=== PATIENT | female | born 1985 | race Caucasian/White ===

== ENCOUNTER → 2016-09-12 | Outpatient (CLI) | payer BC ==
[~2016-09-12] MED LIST: DOXY25TA7; PRENTAB26 PO; PYRI1TAB30
[2016-09-12 13:55] LABS: URINE APPEARANCE CLOUDY (CLEAR); URINE BILIRUBIN NEG (NEG); URINE COLOR DK YELLOW; URINE EPITHELIAL CELL AUTO >30 /lpf (0-5); URINE NITRITE NEG (NEG); URINE PH 7.5 (4.5-7.5); URINE SPECIFIC GRAVITY 1.026 (1.000-1.030); UROBILINOGEN NEG (NEG)
[2016-09-12 14:08] LABS: MANUAL MICROSCOPIC REQUIRED? NO; REVIEW REQ? NO; SULFASALICYLIC ACID NEG (NEG)
== END | disposition home or self-care (01) ==
LOC: C.LABSPEC 13:28
PROVIDERS: ATTEND Obstetrics & Gynecology
DX: Z34.00 Encounter for supervision of normal first pregnancy, unspecified trimester (principal)

== ENCOUNTER → 2016-09-14 | Outpatient (CLI) | payer BC ==
[2016-09-14 12:26] LABS: BASO % 0.3 %; BASO ABS # 0.02 K/uL (0-0.2); COMPLETE YES; EOS % 0.6 %; HEMATOCRIT 40.3 % (37-47); IG% 0.1 %; LYMPH % 19.2 %; LYMPH ABS # 1.37 K/uL (1.2-3.4); MEAN CELL VOLUME 84.8 fL (80-100); MEAN CORPUSCULAR HEMOGLOBIN 29.5 pg (25-34); MEAN CORPUSCULAR HGB CONC 34.7 g/dl (32-36); MEAN PLATELET VOLUME 10.7 fL (7.4-10.4); MONO % 5.6 %; NEUT % 74.2 %; PLATELET COUNT 220 K/uL (130-400); RED BLOOD COUNT 4.75 M/uL (4.2-5.4); WHITE BLOOD COUNT 7.15 K/uL (4.8-10.8)
[2016-09-17 03:06] LABS: CHLAMYDIA TRACH RNA*** NOT DETECTED (NOT DETECTED); GC (NEIS GONORRHOEAE)RNA** NOT DETECTED (NOT DETECTED)
== END | disposition home or self-care (01) ==
LOC: C.LAB1850 10:28
PROVIDERS: ATTEND Obstetrics & Gynecology
DX: Z34.00 Encounter for supervision of normal first pregnancy, unspecified trimester (principal)

== ENCOUNTER → 2016-10-12 | Outpatient (CLI) | payer BC ==
[2016-10-12 14:01] LABS: GTGD 50 Grams
== END | disposition home or self-care (01) ==
LOC: C.LAB1850 10:47
PROVIDERS: ATTEND Obstetrics & Gynecology
DX: Z34.01 Encounter for supervision of normal first pregnancy, first trimester (principal)

== ENCOUNTER → 2017-01-05 | Outpatient (CLI) | payer BC ==
[2017-01-05 10:44] LABS: HEMATOCRIT 40.1 % (37-47)
[2017-01-05 11:33] LABS: GTGD 50 Grams
[2017-01-05 12:04] LABS: URINE APPEARANCE CLEAR (CLEAR); URINE BILIRUBIN NEG (NEG); URINE COLOR YELLOW; URINE EPITHELIAL CELL AUTO >30 /lpf (0-5); URINE NITRITE NEG (NEG); URINE PH 8.5 (4.5-7.5); UROBILINOGEN NEG (NEG)
[2017-01-05 12:08] LABS: MANUAL MICROSCOPIC REQUIRED? NO; REVIEW REQ? NO
== END | disposition home or self-care (01) ==
LOC: C.LAB1850 09:41
PROVIDERS: ATTEND Obstetrics & Gynecology
DX: Z34.02 Encounter for supervision of normal first pregnancy, second trimester (principal)

== ENCOUNTER → 2017-03-10 | Outpatient (CLI) | payer BC | END | disposition home or self-care (01) | LOC: C.LABSPEC 17:24 | PROVIDERS: ATTEND Obstetrics & Gynecology | DX: Z34.03 Encounter for supervision of normal first pregnancy, third trimester (principal); Z3A.00 Weeks of gestation of pregnancy not specified ==

== ENCOUNTER 2017-03-14 03:12 | Inpatient (IN) | payer BC ==
[~2017-03-14] VITALS: Ht 165.1 cm; Wt 101.6 kg
[2017-03-14] MEDS ORDERED: LACTATED RINGER'S 1000ML 1,000 ML IV PRN (03:49)
[2017-03-14 03:54] VITALS: Ht 165.1 cm; Wt 101.6 kg
[2017-03-14 04:07] LABS: HEMATOCRIT 40.4 % (37-47); MEAN CELL VOLUME 86.5 fL (80-100); MEAN CORPUSCULAR HEMOGLOBIN 29.1 pg (25-34); MEAN CORPUSCULAR HGB CONC 33.7 g/dl (32-36); MEAN PLATELET VOLUME 10.8 fL (7.4-10.4); PLATELET COUNT 187 K/uL (130-400); RED BLOOD COUNT 4.67 M/uL (4.2-5.4); WHITE BLOOD COUNT 8.97 K/uL (4.8-10.8)
[2017-03-14] MEDS ORDERED: DOXY25TA7 (07:04)
[2017-03-14] MEDS ORDERED: PRENTAB26 PO (07:04)
[2017-03-14] MEDS ORDERED: PYRI1TAB30 (07:04)
[2017-03-14] MEDS ORDERED: CALCIUM CARBONATE 500 MG CHEWABLE PO PRN (07:15)
[2017-03-14] MEDS: LACTATED RINGER'S 1000ML 1,000 ML IV SCH ×2 (07:28→08:31)
[2017-03-14] MEDS ORDERED: FENTANYL CITRATE INJ 50 MCG/1 ML 2 ML VIAL ONE (08:01)
[2017-03-14] MEDS ORDERED: FENTANYL 2MCG/ML ROPIV 1.25MG/ML 100ML BAG EPI ONE (08:01)
[2017-03-14] MEDS ORDERED: EpHEDrine SULFATE INJ 50 MG/ML AMP ONE (08:01)
[2017-03-14] MEDS ORDERED: BUPIVACAINE 0.25% 30 ML VIAL ONE (08:01)
[2017-03-14] MEDS ORDERED: NALOXONE HCL INJ 1 MG in SODIUM CHLORIDE 0.9% 1000ML 1,000 ML IV PRN (09:04)
[2017-03-14] MEDS ORDERED: LACTATED RINGER'S 1000ML 500 ML IV PRN (09:04)
[2017-03-14] MEDS ORDERED: FENTANYL 2MCG/ML ROPIV 1.25MG/ML 100ML BAG EPI PRN (09:15)
[2017-03-14] MEDS ORDERED: ONDANSETRON INJ 2 MG/ML 2 ML VIAL IV PRN (09:15)
[2017-03-14] MEDS ORDERED: NALBUPHINE HCL INJ 10 MG/ML AMP IV PRN (09:15)
[2017-03-14] MEDS ORDERED: DiphenhydrAMINE HCL 50 MG/ML VIAL IV PRN (09:15)
[2017-03-14] MEDS ORDERED: EpHEDrine SULFATE INJ 50 MG/ML AMP IV PRN (09:15)
[2017-03-14] MEDS ORDERED: NALOXONE HCL INJ 0.4 MG/1 ML VIAL/CARP IV PRN (09:15)
[2017-03-14] MEDS ORDERED: OXYTOCIN 30 UNITS/500ML NSS IV ONE (12:20)
[2017-03-14] MEDS ORDERED: BENZOCAINE 20% AER SPR 82.5 GM CAN EXT PRN (13:15)
[2017-03-14] MEDS ORDERED: ACETAMINOPHEN 325 MG TAB PO PRN (13:15)
[2017-03-14] MEDS ORDERED: SUPERCREAM 0.870 % 15GM JAR EXT PRN (13:15)
[2017-03-14] MEDS ORDERED: OXYTOCIN 30 UNITS/500ML NSS IV PRN (13:15)
[2017-03-14] MEDS ORDERED: LANOLIN OINT EXT PRN ×2 (13:15)
[2017-03-14] MEDS ORDERED: HYDROCORTISONE ACETATE 25 MG SUPP PR PRN (13:15)
[2017-03-14] MEDS ORDERED: DIPHTHERIA/TETANUS/PERTUSSIS 0.5 ML SYR/VIAL IM. ONE (13:15)
--- NOTE | 2017-03-14 13:49 | DELIVERY SUMMARY ---
DATE OF OPERATION: 03/14/2017 PREOPERATIVE DIAGNOSES: 1. Intrauterine at 37 and 1/7 weeks. 2. Spontaneous rupture of membranes. 3. Labor. POSTOPERATIVE DIAGNOSES: Same. PROCEDURES: 1. Epidural anesthesia. 2. Normal spontaneous vaginal delivery. 3. Second-degree perineal laceration with repair. SURGEON: Harper Nunes MD. TUBE SIZER OPERATOR: Thea Dubois MS3. ESTIMATED BLOOD LOSS: 350 mL. PROCEDURE: The patient presented to labor and delivery with gross rupture of membranes and clear fluid. She was in early active labor at 4 and 90%. She underwent an epidural anesthesia and then she progressed spontaneously to complete-complete and +2 station. She pushed effectively to deliver a viable male infant initially in ANDREIA and then restituted to CHRISTY presentation. The nose and mouth were bulb suctioned, loose nuchal cord was easily reduced. The rest of the was then delivered without difficulty. The nose and mouth had been bulb suctioned on the perineum. The infant was placed on the maternal abdomen and then for drying and attention. The cord was clamped and cut at 1 minute of life. Cord blood and segment were obtained. The placenta was delivered spontaneously intact with a 3-vessel cord. Cervix, sulci, and rectum were examined and found to be intact. A second-degree perineal laceration was identified and repaired with 3-0 Vicryl. Rectal exam afterwards revealed no stitches in the rectum and good rectal sphincter tone. Apgars were 8 and 9. Weight is pending. Mother and baby doing well at the end of the delivery. I attest to the content of the Intraoperative Record and any orders documented therein. Any exceptions are noted below. MTDPrashant
--- NOTE | 2017-03-14 14:48 | Anesthesia Procedure Note ---
Anesthesia Epidural Removal Nt Date & Time Mar 14, 2017 at 14:48 Vital Signs Pain Intensity: 8.5 Notes Mental Status: alert / awake / arousable, participated in evaluation Nausea / Vomiting: adequately controlled Pain: adequately controlled Airway Patency, RR, SpO2: stable & adequate BP & HR: stable & adequate Hydration State: stable & adequate Neuraxial Anesthesia: was administered Anesthetic Complications: no major complications apparent, pt satisfied with anesthetic care Epidural: removed without complications, with tip intact
[2017-03-14 16:00] VITALS: BP 124/85; PULSE 120; TEMP 37
[2017-03-14] MEDS: IBUPROFEN 600 MG TAB PO PRN ×2 (16:08→21:52)
[2017-03-14] MEDS: DOCUSATE SODIUM 100 MG CAP PO SCH (19:50)
[2017-03-14 20:30] VITALS: BP 132/86; PULSE 102; TEMP 36.9
[2017-03-14 23:20] VITALS: BP 129/88; PULSE 98; TEMP 36.8; O2SAT 99
[2017-03-15 03:20] VITALS: BP 112/73; PULSE 86; TEMP 36.6; O2SAT 98
[2017-03-15] MEDS: OXYCODONE/ACETAMINOPHEN 5-325 TAB PO PRN (03:24)
--- NOTE | 2017-03-15 06:24 | Progress Note ---
Subjective Mar 15, 2017. Subjective conversation w/ patient, physical exam, chart review, lab review Ambulation: ambulating normally Voiding: no voiding problems Passing Gas: Yes Diet Tolerance: Regular Diet Lochia: Small Feeding Type: Breast Feeding Pain: Around "bottom" and low abd cramping Comment: Found pt resting comfortably, overall well, discomfort as noted above, no acute concerns. Review of Systems Constitutional: No fever, No chills Respiratory: No cough, No shortness of breath Cardiac: No chest pain Abdomen: No nausea, No vomiting, No diarrhea Female : No dysuria Objective Vital Signs Date Time Temp Pulse Resp B/P (MAP) Pulse Ox O2 Delivery O2 Flow Rate FiO2 03/15/17 03:20 36.6 86 16 112/73 (86) 98 Room Air 03/14/17 23:20 99 Room Air 03/14/17 23:20 36.8 98 16 129/88 (102) 99 Room Air 03/14/17 20:30 36.9 102 18 132/86 (101) Room Air 03/14/17 16:00 37.0 120 16 124/85 (98) Room Air 03/14/17 16:00 Room Air Physical Exam General Appearance: WELL-APPEARING, WD/WN, NO APPARENT DISTRESS Respiratory/Chest: lungs clear, normal breath sounds, no respiratory distress Cardiovascular: regular rate, rhythm, no murmur Abdomen: normal bowel sounds, non tender, soft Fundus: Firm, Non-Tender, Relation to Umbilicus (approx three down) Extremities: non-tender, no calf tenderness, + pedal edema (trace bilateral) Laboratory Results Last 24 Hours Test 03/15/17 04:44 Assessment and Plan Post- Day#: 1 Continue Routine Care: 31F s/p , now PPD #1. - Blood type O positive. GBS negative. Rubella immune. - Vital signs reviewed and stable. - Pain controlled with motrin and percocet. - Trace feet swelling and no tenderness on calf palpation. Encourage ambulation. - Encourage breast feeding. - Hemoglobin pre-delivery 13.6, post-delivery pending this am. Bleeding has improved. Continue to monitor clinically. - Continue routine post-vaginal delivery care. - Pt agreed with above plan, all current questions answered. Ashish Langford MD, PGY1 Health Claims Examiner Physician Supervision Note: I interviewed and examined the patient. Discussed with Dr. Langford and agree with findings and plan as documented in the note. Any exceptions or clarifications are listed here: Doing well. Routine care. Documented By: Harper Nunes Resident Tracking Resident Involvement: Resident Care Provided Care Provided: OB Delivery (OB rounds)
[2017-03-15 08:00] VITALS: BP 112/75; PULSE 81; TEMP 36.7
[2017-03-15] MEDS: DOCUSATE SODIUM 100 MG CAP PO SCH ×2 (08:23→20:09)
[2017-03-15] MEDS: PRENATAL VITAMIN TAB PO SCH (08:23)
[2017-03-15] MEDS: IBUPROFEN 600 MG TAB PO PRN ×4 (08:24→21:02)
[2017-03-15 12:15] VITALS: BP 130/80; PULSE 89; TEMP 36.8; O2SAT 98
[2017-03-15 16:05] VITALS: BP 133/86; PULSE 100; TEMP 36.5; O2SAT 98
[2017-03-15 23:30] VITALS: BP 111/74; PULSE 86; TEMP 36.6; O2SAT 98
[2017-03-16] MEDS: OXYCODONE/ACETAMINOPHEN 5-325 TAB PO PRN (00:34)
[2017-03-16] MEDS: IBUPROFEN 600 MG TAB PO PRN ×3 (05:03→12:45)
--- NOTE | 2017-03-16 06:44 | Progress Note ---
Subjective Mar 16, 2017. Subjective conversation w/ patient, physical exam, chart review, lab review Ambulation: ambulating normally Voiding: no voiding problems Passing Gas: Yes Diet Tolerance: Regular Diet Lochia: Small Feeding Type: Breast Feeding Pain: Says "bottom" pain improving, mostly when no pressure on area Comment: Found pt resting comfortably. Says cramping and bottom pain improving, controlled with PO meds. Denies any other acute c/o. Review of Systems Constitutional: No fever, No chills Respiratory: No cough, No shortness of breath Cardiac: No chest pain Abdomen: No nausea, No vomiting, No diarrhea Female : No dysuria Objective Vital Signs Date Time Temp Pulse Resp B/P (MAP) Pulse Ox O2 Delivery O2 Flow Rate FiO2 03/15/17 23:30 98 Room Air 03/15/17 23:30 36.6 86 18 111/74 (86) 98 Room Air 03/15/17 16:05 36.5 100 16 133/86 (102) Room Air 03/15/17 16:05 98 Room Air 03/15/17 12:15 36.8 89 18 130/80 (97) 98 Room Air 03/15/17 08:00 Room Air 03/15/17 08:00 36.7 81 18 112/75 (87) Room Air Physical Exam General Appearance: WELL-APPEARING, WD/WN, NO APPARENT DISTRESS Respiratory/Chest: lungs clear, normal breath sounds, no respiratory distress Cardiovascular: regular rate, rhythm, no murmur Abdomen: normal bowel sounds, non tender, soft Fundus: Firm, Non-Tender, Relation to Umbilicus (approx three down) Extremities: normal range of motion, no calf tenderness, + pedal edema (trace bilaterally) Laboratory Results Last 24 Hours Test 03/15/17 06:48 Hemoglobin 12.0 g/dL Hematocrit 35.0 % Assessment and Plan Day#: 2 Continue Routine Care: 31F s/p , now PPD #2. - Blood type O positive. GBS negative. Rubella immune. - Vital signs reviewed and stable. - Pain controlled with motrin and percocet. - Very minimal leg swelling and no tenderness on calf palpation. Encourage ambulation. - Encourage breast feeding. - Hemoglobin pre-delivery 13.6, post-delivery 12.0. Continue to monitor clinically. - Continue routine post-vaginal delivery care. - Pt agreed with above plan, all current questions answered. Ashish Langford MD, PGY1 Application Trainer Physician Supervision Note: I interviewed and examined the patient. Discussed with Dr. Langford and agree with findings and plan as documented in the note. Any exceptions or clarifications are listed here:D/C instructions given, f/u in 6 weeks Documented By: Jerry Pat Resident Tracking Resident Involvement: Resident Care Provided Care Provided: OB Delivery (OB rounds)
--- NOTE | 2017-03-16 06:53 | Discharge Instructions ---
Discharge Instructions Date of Service Mar 16, 2017. Admission Reason for Admission: Check Rupture Discharge Discharge Diagnosis / Problem: Recovery from vaginal delivery Discharge Goals Goal(s): Routine recovery after delivery Medications Continue Dispensed Medications: supercream, dermaplast, tucks, lansinoh Activity Recommendations Activity Limitations: per Instructions/Follow-up section . Instructions / Follow-Up Instructions / Follow-Up ACTIVITY RECOMMENDATIONS: * Gradual return to full activity over the next 2-3 weeks. * No lifting - nothing heavier than baby over the next 2-3 weeks. * Do not engage in vigorous exercise, sexual activity or sports until cleared by your physician. * Do not drive or operate any motorized equipment until cleared by your physician. * You may shower/bathe daily. MEDICATIONS: For discomfort or pain, you may use Acetaminophen (Tylenol), Ibuprofen (Advil), or Naproxen (Aleve) following the package directions. For constipation you may use Colace following the package directions. BREAST CARE: If you are not breast feeding: * Wear a supportive bra 24 hours a day for one to two weeks. * Avoid stimulating your breasts and nipples as much as possible during the first few weeks after delivery. * When taking a shower, have the warm water hit your back, not breasts. * When your breasts feel full, apply ice packs. Usually three to four times a day helps ease the discomfort. * Take a mild pain medication (Tylenol / Motrin) when you are uncomfortable. If breast feeding: * Use breast milk to lubricate nipples. Lansinoh cream may be used for sore nipples. You do not need to remove cream prior to breast feeding. If using a different brand of cream, check the label for directions regarding removal of cream prior to nursing. * Wear a supportive bra. * If having problems with breasts or breast feeding, call a data migration consultant or your health care provider. EPISIOTOMY CARE: After delivery, if you have an episiotomy (stitches), the following steps will ease discomfort and aid healing. * For the first 24 hours after delivery, place ice packs next to your episiotomy to help reduce swelling. * After the first 24 hour-period, sitz baths, either portable or in the tub, are suggested. A shower with a shower arm sprayed over the episiotomy may be comforting. * Michelle care should be done after each voiding and bowel movement. Squirt warm water from a plastic bottle over the perineum (region of the body between the anus and urinary opening) and pat dry. * Use Dermoplast to ease discomfort. Shake container. [place] directly over the episiotomy. Place a Tucks on a clean sanitary pad next to your episiotomy. SPECIAL CARE INSTRUCTIONS: When you are discharged from the hospital, it is important for you to follow the instructions listed below: * During the first week at home, you should be able to care for yourself and your baby. In addition, the usual light household activities are encouraged. * Limit your activities to the way you feel. Do not try to clean the house or move furniture. Be sensible. * If you actively engage in sports and have done so up until the time of your delivery, you may resume these activities as soon as you feel able. This may take up to one month or even longer. Use good judgment. * Continue to take your vitamins for at least six weeks after the of your baby. * Your diet need not be limited unless you were on a special diet before your delivery. Breast-feeding mothers need around 2500 calories per day and at least 64-80 ounces of fluid per day (8 to 10 glasses). * You should eat foods from the four major food groups. Crash diets or fad diets are to be avoided. Eating lean meats, fresh fruits and vegetables, low-fat dairy products, high fiber foods and a regular exercise program, will help you get back to your pre- weight without putting your health at risk. * Constipation is sometimes a problem after delivery. Take a mild laxative as needed. If breast feeding, Milk of Magnesia is acceptable to use. You may use a suppository or Fleets enema if no episiotomy. * A daily shower or tub bath is suggested. Be sure to thoroughly and gently dry the perineum. * A bloody vaginal discharge will usually continue until around four weeks post . A small amount of bleeding may continue for as long as six weeks. Vaginal discharge changes from the bright red bleeding after delivery to pink then brownish and finally yellowish-pink before becoming white and disappearing. * Bleeding may increase with activity. Your first period may come in 4-8 weeks. If you are breast feeding, your period may be delayed even longer. * [place] (sex) can begin whenever both you and your partner feel comfortable and do not have any form of genital infection. It is recommended that you wait at least six weeks for internal and external healing to occur. If you have questions, please talk to your health care practitioner. A condom should be used to prevent infection and . * Foreplay, gentle intercourse and lubrication is very important the first several times to prevent pain. A water-based lubricant such as K-Y jelly or Astroglide may be used. * If you have RH negative blood and your baby is RH positive, you will receive RHOGAM by injection prior to discharge. The nurse will give you a card to keep with you that has the date and place that you received RHOGAM after delivery. * During your care, you had a Rubella screen done to check for the presence of rubella antibodies in your blood. If your test was negative, you will receive a Rubella vaccine prior to discharge. This vaccine may cause a fever, soreness at the injection site and flu-like symptoms. If these symptoms persist, notify your health care practitioner. is not advised for one month after a Rubella vaccine. * Verbalizes understanding of car seat law as reviewed with patient nursing. * Car Seat hand-out given and reviewed with patient by nursing. * Shaken baby information reviewed with patient by nursing. Call you doctor if: * Heavy bleeding (saturating several pads an hour) or passing clots the size of your fist. * A fever >101 degrees F (38.3 degrees C) on two occasions four hours apart and /or chills. * Unusual pain in the pelvic or vaginal areas. * "Baby Blues" lasting longer than two weeks. If you have any questions or concerns, call your health care practitioner at . FOLLOW UP VISIT: * Please call the office at to schedule a 6 week examination. It is important you keep this appointment. It is important for you to make arrangements for either yearly or twice yearly check-ups thereafter. Current Hospital Diet Patient's current hospital diet: Regular OB Diet Discharge Diet Recommended Diet: Regular OB Diet Pending Studies Studies pending at discharge: no Medical Emergencies . Who to Call and When: Medical Emergencies: If at any time you feel your situation is an emergency, please call [phone] immediately. . Non-Emergent Contact Non-Emergency issues call your: Factory Expert . . "Provider Documentation" section prepared by Ashish Langford. . VTE Core Measure Inpt VTE Proph given/why not?: Treatment not indicated
[2017-03-16 08:04] VITALS: BP 124/80; PULSE 83; TEMP 36.7; O2SAT 98
[2017-03-16] MEDS: PRENATAL VITAMIN TAB PO SCH (08:38)
[2017-03-16] MEDS: DOCUSATE SODIUM 100 MG CAP PO SCH (08:39)
[2017-03-16 10:18] VITALS: O2SAT 98
[2017-03-16 13:13] VITALS: BP_DIAS 80; PULSE 83; TEMP 36.7
== END 2017-03-16 14:45 | disposition home or self-care (01) | DRG 775 ==
LOC: C.OPB 03:12 → C.LD 03:12 → C.OPB 03:51 → C.LD 03:51 → C.OBG 15:31
PROVIDERS: ADMIT Obstetrics & Gynecology; ATTEND Obstetrics & Gynecology
PROC: 0KQM0ZZ Repair Perineum Muscle, Open Approach (ICD-10-PCS; principal; 2017-03-14)
PROC: 10E0XZZ Delivery of Products of Conception, External Approach (ICD-10-PCS; principal; 2017-03-14)
DX: O70.1 Second degree perineal laceration during delivery (principal); Z37.0 Single live birth; O69.81X0 Labor and delivery complicated by cord around neck, without compression, not applicable or unspecified; Z3A.37 37 weeks gestation of pregnancy

== ENCOUNTER → 2017-03-27 | Outpatient (CLI) | payer BC ==
[~2017-03-27] MED LIST changes: -PYRI1TAB30
[2017-03-27 17:52] LABS: BASO % 0.3 %; BASO ABS # 0.03 K/uL (0-0.2); COMPLETE YES; EOS % 1.1 %; HEMATOCRIT 42.1 % (37-47); IG% 0.3 %; LYMPH % 7.9 %; LYMPH ABS # 0.93 K/uL (1.2-3.4); MEAN CELL VOLUME 87.5 fL (80-100); MEAN CORPUSCULAR HEMOGLOBIN 29.5 pg (25-34); MEAN CORPUSCULAR HGB CONC 33.7 g/dl (32-36); MEAN PLATELET VOLUME 10.3 fL (7.4-10.4); NEUT % 84.4 %; PLATELET COUNT 238 K/uL (130-400); RED BLOOD COUNT 4.81 M/uL (4.2-5.4); WHITE BLOOD COUNT 11.82 K/uL (4.8-10.8)
== END | disposition home or self-care (01) ==
LOC: C.LAB1850 16:42
PROVIDERS: ATTEND Obstetrics & Gynecology
DX: O86.4 Pyrexia of unknown origin following delivery (principal)

== ENCOUNTER → 2017-04-25 | Outpatient (CLI) | payer BC | END | disposition home or self-care (01) | LOC: C.PAPS 10:30 | PROVIDERS: ATTEND Obstetrics & Gynecology | DX: Z39.2 Encounter for routine postpartum follow-up (principal) ==

== ENCOUNTER 2020-05-21 02:50 | Inpatient (IN) ==
[2020-05-21] MEDS ORDERED: OXYTOCIN 30 UNITS/500 ML BAG IV PRN ×2 (03:18→04:07)
[2020-05-21] MEDS ORDERED: LACTATED RINGER'S 1,000 ML IV PRN (03:18)
[2020-05-21] MEDS ORDERED: OXYTOCIN 10 UNITS/ML VIAL ONE (03:21)
[2020-05-21] MEDS ORDERED: LIDOCAINE/EPINEPHRINE 1% 20 ML VIAL ONE (03:27)
[2020-05-21] MEDS ORDERED: LIDOCAINE HCL 1% 20 ML VIAL ONE (03:29)
--- NOTE | 2020-05-21 03:58 | Delivery Summary ---
Vaginal Delivery Summary Date of Service May 21, 2020 Vaginal Delivery Summary and 4th Degree LAC Spontaneous vaginal delivery patient arrived in the hospital second baby at 7 cm dilatation prior to getting labs serum quickly progressed to fully dilated and pushed unmedicated baby is in occiput anterior position no nuchal cord fluid was clear gentle traction no excessive force used live vigorous male infant cord clamped and cut cord blood obtained placenta removed with gentle traction IM Pitocin given as we did not have time for IV access uterine tone improved there was 1/4 degree tear noted into the rectal mucosa carefully repaired the rectum with Mucosa with Vicryl reapproximating the mucosa but not into the mucosa. Then the anal sphincter was carefully reapproximated with 0 Vicryl. And then the rest of the closure was done in the usual fashion closing the vaginal defect and reapproximating the bulbocavernosus muscles. And then closing the skin at rectal exam at this stage failed to reveal any defects or sutures in the rectum no we did use local anesthetic and the patient tolerated this well estimated blood loss 200 mL [facility] Vaginal Delivery Charge Vaginal Delivery Codes: 11061 global code for the antepartum, delivery, and post-
[2020-05-21] MEDS ORDERED: HYDROCORTISONE ACETATE 25 MG SUPP PR PRN (04:07)
[2020-05-21] MEDS ORDERED: BENZOCAINE 20% AER SPR 82.5 GM CAN EXT PRN (04:07)
[2020-05-21] MEDS ORDERED: DIPHTHERIA/TETANUS/PERTUSSIS 0.5 ML SYR/VIAL IM ONE (04:07)
[2020-05-21] MEDS ORDERED: SUPERCREAM 0.870% 15 GM JAR EXT PRN (04:07)
[2020-05-21] MEDS ORDERED: ACETAMINOPHEN 325 MG TAB PO PRN (04:07)
[2020-05-21] MEDS ORDERED: bisacodyL 10 MG SUPP PR PRN (04:07)
[2020-05-21] MEDS ORDERED: oxyCODONE/ACETAMINOPHEN 5mg/325mg TAB PO ONE (04:09)
[2020-05-21] MEDS ORDERED: IBUPROFEN 600 MG TAB PO ONE (04:09)
[2020-05-21 04:17] LABS: Hematocrit (blood only) 40.9 % (37-47); Hemoglobin 13.7 g/dL (12.0-16.0); Mean Corpuscular Hemoglobin 29.3 pg (25-34); Mean Corpuscular Hgb Conc 33.5 g/dL (32-36); Mean Corpuscular Volume 87.4 fL (80-100); Mean Platelet Volume 11.1 fL (7.4-10.4); Platelet Count 179 K/uL (130-400); RDW Coefficient of Variation 14.3 % (11.5-14.5); RDW Standard Deviation 45.4 fL (36.4-46.3); Red Blood Count 4.68 M/uL (4.2-5.4); White Blood Count 12.55 K/uL (4.8-10.8)
[2020-05-21] MEDS: DOCUSATE SODIUM 100 MG CAP PO SCH ×2 (07:52→20:48)
[2020-05-21] MEDS: PRENATAL VITAMIN 1 TAB PO SCH (07:52)
[2020-05-21] MEDS: oxyCODONE/ACETAMINOPHEN 5mg/325mg TAB PO PRN ×3 (07:52→20:48)
[2020-05-21] MEDS: IBUPROFEN 600 MG TAB PO PRN ×4 (07:53→20:49)
[2020-05-22] MEDS: IBUPROFEN 600 MG TAB PO PRN ×6 (01:09→21:59)
[2020-05-22] MEDS: oxyCODONE/ACETAMINOPHEN 5mg/325mg TAB PO PRN (04:56)
--- NOTE | 2020-05-22 06:27 | Obstetrical Progress Note ---
Date of Service <Juan Alberto Pride MD - Last Filed: 05/22/20 07:41> May 22, 2020 Assessment & Plan <Juan Alberto Pride MD - Last Filed: 05/22/20 07:41> (1) Obesity affecting , antepartum: A/P: Ana Hartman is a 34 y/o female on PPD#1 following at 39+3 weeks complicated by a 4th degree lac. * Patient feels well today; eating well, voiding well, ambulating well * Pain well-controlled with ibuprofen 600mg q4h prn and oxycodone/acetaminophen 1tab q4h prn. * Routine postcesarean care: OOB, ambulation, diet progression as tolerated * After discharge, will have six-week follow-up with Dr. Neil Subjective <Juan Alberto Pride MD - Last Filed: 05/22/20 07:41> Ambulation: ambulating normally Voiding: no voiding problems Passing Gas:: Yes Diet Tolerance:: regular diet Lochia:: William Hartman is a 34 y/o female on PPD#1 following at 39+3 weeks complicated by a 4th degree lac. She reports feeling well overall this morning. Mild abdominal cramping and 3/10 pain well managed on analgesics. Voiding well. Tolerating meals overnight without difficulty. Patient has been able to ambulate some. Has persistent lochia with some improvement this morning. Currently . Constitutional: no fever and no chills Respiratory: no cough and no dyspnea Cardiovascular: no chest pain, no palpitations and no edema Gastrointestinal: no nausea and no vomiting Genitourinary (female): no dysuria Physical Exam <Juan Alberto Pride MD - Last Filed: 05/22/20 07:41> General: alert, oriented, no acute distress Cardiac: regular rate and rhythm, no murmurs appreciated Respiratory: lungs clear to auscultation bilaterally a/p, no wheezes/rales/rhonchi, no increased work of breathing, symmetrical chest rise, no respiratory distress Abdomen: soft, minimally tender, nondistended, bowel sounds present Uterus: uterine fundus firm, palpable at umbilicus Lower extremities: no lower extremity edema or swelling, no deep calf pain, Yovanny's negative bilaterally Constitutional no acute distress Respiratory normal respiratory effort, lungs clear to auscultation Cardiovascular RRR, no murmur, no edema Gastrointestinal (Abdomen) Inspection/Auscultation: normal bowel sounds Percussion/Palpation: abdomen soft Results & Data ([facility]) <Juan Alberto Pride MD - Last Filed: 05/22/20 07:41> Vital Signs (Past 12 Hours) Vital Signs Temp Pulse Resp BP Pulse Ox 05/22/20 00:55 36.8 C 97 H 16 126/81 98 05/21/20 20:45 37.3 C 100 H 18 132/84 <Nirali Sanders MD, FACOG - Last Filed: 05/22/20 07:52> Co-Signing Physician Notes Resident Physician Supervision Note: I was present with Dr. pride during the history and exam. I discussed the case with the resident and agree with the findings and plan as documented in the note. Any exceptions or clarifications are listed here: pt doing well, bottom sore, needs to work on nursing. routine pp care, rh pos, ri. Documented By: Nirali Sanders MD, FACOG Resident Activity Tracking <Juan Alberto Pride MD - Last Filed: 05/22/20 07:41> Resident Involvement: Resident Care Provided Care Provided: OB Delivery
[2020-05-22 07:10] LABS: Hematocrit (blood only) 37.3 % (37-47); Hemoglobin 12.1 g/dL (12.0-16.0); Mean Corpuscular Hemoglobin 28.5 pg (25-34); Mean Corpuscular Hgb Conc 32.4 g/dL (32-36); Mean Corpuscular Volume 87.8 fL (80-100); Mean Platelet Volume 11.4 fL (7.4-10.4); Platelet Count 155 K/uL (130-400); RDW Coefficient of Variation 14.5 % (11.5-14.5); RDW Standard Deviation 46.8 fL (36.4-46.3); Red Blood Count 4.25 M/uL (4.2-5.4); White Blood Count 10.48 K/uL (4.8-10.8)
[2020-05-22] MEDS: PRENATAL VITAMIN 1 TAB PO SCH (08:48)
[2020-05-22] MEDS: DOCUSATE SODIUM 100 MG CAP PO SCH ×2 (08:48→20:50)
[2020-05-22] MEDS: ACETAMINOPHEN 325 MG TAB PO PRN ×2 (08:49→13:00)
[2020-05-22] MEDS ORDERED: bisacodyL 5 MG TABEC PO SCH (20:00)
[2020-05-23] MEDS: IBUPROFEN 600 MG TAB PO PRN ×3 (03:29→12:37)
--- NOTE | 2020-05-23 05:25 | Obstetrical Progress Note ---
Date of Service <Juan Alberto Roman MD - Last Filed: 05/23/20 07:05> May 23, 2020 Assessment & Plan <Juan Alberto Roman MD - Last Filed: 05/23/20 07:05> (1) (spontaneous vaginal delivery): A/P: Ana Hartman is a 34 y/o female on PPD#2 following at 39+3 weeks. * Patient feels well today; eating well, voiding well, ambulating well * Pain well-controlled with ibuprofen 600mg q4h prn * PNL: Rh pos, RI, GBS neg, COVID neg * Routine postcesarean care: OOB, ambulation, diet progression as tolerated * After discharge, will have six-week follow-up with Dr. Neil Subjective <Juan Alberto Roman MD - Last Filed: 05/23/20 07:05> Ana Hartman is a 34 y/o female on PPD#2 following at 39+3 weeks. She reports feeling well overall this morning. Minimal abdominal cramping and 2/10 pain well managed on analgesics. Voiding well. Tolerating meals overnight without difficulty. Patient has been able to ambulate some. Has persistent lochia with some improvement this morning. Currently . Denies fever or chills. Denies cough or shortness of breath. Denies chest pain. Denies dysuria. Denies leg pain. Denies headache or changes in vision. Physical Exam <Juan Alberto oRman MD - Last Filed: 05/23/20 07:05> General: alert, oriented, no acute distress Cardiac: regular rate and rhythm, no murmurs appreciated Respiratory: lungs clear to auscultation bilaterally a/p, no wheezes/rales/rhonchi, no increased work of breathing, symmetrical chest rise, no respiratory distress Abdomen: soft, minimally tender, nondistended, bowel sounds present Uterus: uterine fundus firm, palpable 4cm below umbilicus Lower extremities: no lower extremity edema or swelling, no deep calf pain, Yovanny's negative bilaterally Results & Data ([facility]) <Juan Alberto Roman MD - Last Filed: 05/23/20 07:05> Vital Signs (Past 12 Hours) Vital Signs Temp Pulse Resp BP Pulse Ox 05/23/20 00:05 37.0 C 88 18 120/73 98 05/22/20 20:50 37.3 C 84 18 132/80 99 <Deana Byrne MD - Last Filed: 05/23/20 07:32> Co-Signing Physician Notes I have reviewed the resident's note and examined the patient myself, and agree with the note above except where it mentions postcesarean care as this patient had a VAGINAL delivery and fourth degree tear. Specific instructions for management of bowels after 4th degree were reviewed with patient this morning; she has only passed flatus and feels the need to have a BM but has been holding back, so we discussed the importance of going regularly and using stool softeners and laxatives as needed. D/C instructions reviewed. Resident Activity Tracking <Juan Alberto Roman MD - Last Filed: 05/23/20 07:05> Resident Involvement: Resident Care Provided Care Provided: OB Delivery
[2020-05-23 06:31] LABS: Hematocrit (blood only) 36.2 % (37-47); Hemoglobin 12.1 g/dL (12.0-16.0)
[2020-05-23] MEDS: PRENATAL VITAMIN 1 TAB PO SCH (08:15)
[2020-05-23] MEDS: ACETAMINOPHEN 325 MG TAB PO PRN (08:15)
[2020-05-23] MEDS: DOCUSATE SODIUM 100 MG CAP PO SCH (08:15)
== END 2020-05-23 16:00 | disposition home or self-care (01) | DRG 768 ==
LOC: OPB 02:50 → 4S1 02:56 → 4S2 07:03